=== PATIENT | male | born 1960 | race Caucasian/White ===

== ENCOUNTER 2017-07-15 10:58 | Emergency (ER) | payer MEDICAID ==
[~2017-07-15] VITALS: Ht 175.3 cm; Wt 93.2 kg
[2017-07-15 11:04] VITALS: Ht 175.3 cm; Wt 93.2 kg
[2017-07-15 13:50] VITALS: BP 127/88
== END 2017-07-15 13:51 | disposition home or self-care (01) ==
LOC: ED 10:58
DX: B34.9 Viral infection, unspecified (principal); K11.20 Sialoadenitis, unspecified

== ENCOUNTER 2020-07-29 17:30 | Inpatient (IN) | payer OTHER, SELFPAY ==
[~2020-07-29] VITALS: Ht 175.3 cm; Wt 87.5 kg
[2020-07-29 17:32] VITALS: Ht 175.3 cm; Wt 87.5 kg
[2020-07-29 19:24] LABS: BASOPHIL % 0.5 % (0.2-1.5)
[2020-07-29 19:27] LABS: PLATELET COUNT 220 x10^3mcL (152-348)
[2020-07-29 19:53] LABS: CALCIUM 8.7 mg/dL (8.5-10.1); CARBON DIOXIDE 27.9 mmol/L (21-32); CHLORIDE SERUM 92 mmol/L (98-107); GFR1 > 60 mL/min; GLUCOSE SERUM 111 mg/dL (74-106); POTASSIUM SERUM 3.5 mmol/L (3.5-5.1); SODIUM SERUM 129 mmol/L (136-145)
[2020-07-29 19:59] LABS: ALKALINE PHOSPHATASE 64 U/L (46-116); ALT/SGPT 42 U/L (16-63); AST/SGOT 49 U/L (15-37); LACTIC DEHYDROGENASE (LDH) 383 U/L (100-190); TOTAL PROTEIN, SERUM 7.6 g/dL (6.4-8.2)
[2020-07-29 20:42] LABS: C REACTIVE PROTEIN 21.1 mg/dL (<=0.9)
[2020-07-29 22:10] LABS: CHOLESTEROL/HDL RATIO 6.2
[2020-07-29 22:14] LABS: microscopic required? NO
[2020-07-29 22:20] LABS: UA SPECIFIC GRAVITY 1.025 (1.005-1.035); urine erythrocyte NEGATIVE (NEGATIVE)
[2020-07-30 07:17] LABS: ALBUMIN 2.6 g/dL (3.4-5.0); ALKALINE PHOSPHATASE 58 U/L (46-116); ALT/SGPT 36 U/L (16-63); AST/SGOT 35 U/L (15-37); BILIRUBIN TOTAL 0.73 mg/dL (0.20-1.00); CARBON DIOXIDE 29.3 mmol/L (21-32); CHLORIDE SERUM 97 mmol/L (98-107); CREATININE SERUM 0.8 mg/dL (0.7-1.3); GFR1 > 60 mL/min; GLUCOSE SERUM 138 mg/dL (74-106); POTASSIUM SERUM 4.8 mmol/L (3.5-5.1); SODIUM SERUM 133 mmol/L (136-145); TOTAL PROTEIN, SERUM 7.1 g/dL (6.4-8.2)
[2020-07-31 01:56] VITALS: BP 145/79
[2020-07-31 06:53] VITALS: BP 131/84
[2020-07-31 08:16] LABS: BASOPHIL % 0.1 % (0.2-1.5); PLATELET COUNT 300 x10^3mcL (152-348)
[2020-07-31 08:44] VITALS: BP 135/82
[2020-07-31 08:52] LABS: ALKALINE PHOSPHATASE 48 U/L (46-116); ALT/SGPT 45 U/L (16-63); AST/SGOT 40 U/L (15-37); BILIRUBIN DIRECT 0.08 mg/dL (0.0-0.2); BILIRUBIN TOTAL 0.65 mg/dL (0.20-1.00); CALCIUM 9.4 mg/dL (8.5-10.1); CARBON DIOXIDE 29.3 mmol/L (21-32); CHLORIDE SERUM 96 mmol/L (98-107); CREATININE SERUM 0.9 mg/dL (0.7-1.3); GFR1 > 60 mL/min; GLUCOSE SERUM 119 mg/dL (74-106); MAGNESIUM 2.5 mg/dL (1.8-2.4); PHOSPHOROUS 3.4 mg/dL (2.5-4.9); SODIUM SERUM 131 mmol/L (136-145); TOTAL PROTEIN, SERUM 6.9 g/dL (6.4-8.2)
[2020-07-31 09:06] LABS: ALBUMIN 2.5 g/dL (3.4-5.0)
[2020-07-31 09:07] LABS: POTASSIUM SERUM 5.5 mmol/L (3.5-5.1)
[2020-07-31 12:27] VITALS: BP 102/62
[2020-07-31 16:08] VITALS: BP 120/72
[2020-07-31] MEDS ORDERED: PROAIR HFA8.5 GM INH (17:28)
[2020-07-31] MEDS ORDERED: DECADRON6 MG PO (17:28)
[2020-07-31] MEDS ORDERED: XARELTO2.5 MG PO (17:33)
[2020-07-31 20:41] VITALS: BP 136/67
[2020-08-01 05:11] VITALS: BP 119/63
[2020-08-01] MEDS ORDERED: XARELTO2.5 MG PO (08:44)
[2020-08-01 08:51] VITALS: BP 125/74
[2020-08-01 09:52] LABS: BILIRUBIN DIRECT 0.13 mg/dL (0.0-0.2); BILIRUBIN TOTAL 0.63 mg/dL (0.20-1.00); TOTAL PROTEIN, SERUM 6.8 g/dL (6.4-8.2)
[2020-08-01 09:57] LABS: ALBUMIN 2.5 g/dL (3.4-5.0)
[2020-08-01 12:48] VITALS: BP 115/76
[2020-08-01 16:08] VITALS: BP 139/85
[2020-08-01 20:31] VITALS: BP 152/79
[2020-08-02 04:37] VITALS: BP 142/87
[2020-08-02 08:13] LABS: BILIRUBIN DIRECT 0.23 mg/dL (0.0-0.2); BILIRUBIN TOTAL 1.1 mg/dL (0.20-1.00); TOTAL PROTEIN, SERUM 7.2 g/dL (6.4-8.2)
[2020-08-02 08:15] LABS: ALBUMIN 2.6 g/dL (3.4-5.0)
[2020-08-02 09:18] VITALS: BP 129/87; BP 94/55
[2020-08-02] MEDS ORDERED: DECADRON6 MG PO (12:14)
[2020-08-02 13:47] VITALS: BP 122/77
[2020-08-02 18:14] VITALS: BP 145/94
[2020-08-02 20:35] VITALS: BP 95/56
[2020-08-03 06:05] VITALS: BP 121/68
[2020-08-03 08:12] LABS: BILIRUBIN DIRECT 0.14 mg/dL (0.0-0.2); BILIRUBIN TOTAL 0.62 mg/dL (0.20-1.00); TOTAL PROTEIN, SERUM 7.1 g/dL (6.4-8.2)
[2020-08-03 08:41] LABS: ALBUMIN 2.4 g/dL (3.4-5.0)
[2020-08-03 09:05] VITALS: BP 128/84
== END 2020-08-03 10:10 | disposition left against medical advice (07) | DRG 871 ==
LOC: ED 17:30 → MU 21:23
PROVIDERS: Emergency Medicine; Internal Medicine; ADMIT Family Medicine; ATTEND Family Medicine
PROC: XW033E5 Introduction of Remdesivir Anti-infective into Peripheral Vein, Percutaneous Approach, New Technology Group 5 (ICD-10-PCS; principal; 2020-07-30)
DX: A41.9 Sepsis, unspecified organism (principal); U07.1 COVID-19; J18.9 Pneumonia, unspecified organism; E87.1 Hypo-osmolality and hyponatremia; Z79.899 Other long term (current) drug therapy; Z79.01 Long term (current) use of anticoagulants; Z79.891 Long term (current) use of opiate analgesic; Z79.2 Long term (current) use of antibiotics
CPT/HCPCS: 36600; 83880; 85378; 87804; G0378; J0456; J0696; J1100; J1650; J7050; J7060; U0003